=== PATIENT | male | born 1980 | race African-American/Black ===

== ENCOUNTER 2018-07-23 19:58 | Emergency (ER) | payer OTHER ==
[~2018-07-23] VITALS: Ht 180.3 cm; Wt 100.0 kg
[2018-07-23] MEDS ORDERED: KETOROLAC 30 MG/ML VIAL (J1885) IV ONE (21:30)
[2018-07-23] MEDS ORDERED: NS 1,000 ML IV ONE (21:30)
[2018-07-23 21:43] LABS: BASO # 0.1 10^3/uL (0.0-0.2); BASO % 0.9 % (0.0-1.0); EOS # 0.3 10^3/uL (0.0-0.50); EOS % 5.1 % (0.0-3.0); HEMATOCRIT 44.9 % (42.0-52.0); HEMOGLOBIN 15.6 g/dl (13.5-17.5); LYMPH # 1.7 10^3/uL (1.5-4.5); LYMPH % 29.4 % (24.0-44.0); MEAN CORPUSCULAR HEMOGLOBIN 32.8 pg (27.0-33.0); MEAN CORPUSCULAR HGB CONC 34.7 g/dl (32.0-36.5); MEAN CORPUSCULAR VOLUME 94.3 fl (80.0-96.0); MONO # 1.1 10^3/uL (0.0-0.8); MONO % 18.6 % (0.0-5.0); NEUTROPHILS # 2.6 10^3/uL (1.8-7.7); NEUTROPHILS % 45.8 % (36.0-66.0); PLATELET COUNT, AUTOMATED 222 10^3/uL (150-450); RED BLOOD COUNT 4.76 10^6/uL (4.30-6.10); WHITE BLOOD COUNT 5.6 10^3/uL (4.0-10.0)
[2018-07-23 22:07] LABS: BLOOD UREA NITROGEN 12 MG/DL (7-18); C REACTIVE PROTEIN QUANTITATIV 3.51 MG/DL (0.00-0.30); CALCIUM LEVEL 8.9 MG/DL (8.5-10.1); CARBON DIOXIDE LEVEL 27 MEQ/L (21-32); CHLORIDE LEVEL 105 MEQ/L (98-107); CREATININE FOR GFR 1.13 MG/DL (0.70-1.30); GLOMERULAR FILTRATION RATE > 60.0 (>60); GLUCOSE, FASTING 87 MG/DL (70-100); POTASSIUM SERUM 4.2 MEQ/L (3.5-5.1); SODIUM LEVEL 139 MEQ/L (136-145)
[2018-07-23] MEDS ORDERED: ISOVUE-370 76% 100ML VIAL (Q9967) As Ordered ONE (22:12)
--- NOTE | 2018-07-23 22:39 | REPVR ---
EXAM: CT Neck With Contrast EXAM DATE/TIME: 07/23/2018 10:19 PM CLINICAL HISTORY: 37 years old, male; Signs and symptoms; Mass, lump, or swelling in neck; Additional info: Neck mass, swelling TECHNIQUE: Axial computed tomography images of the neck with intravenous contrast. All CT scans at this facility use at least one of these dose optimization techniques: automated exposure control; mA and/or kV adjustment per patient size (includes targeted exams where dose is matched to clinical indication); or iterative reconstruction. Coronal and sagittal reformatted images were created and reviewed. CONTRAST: 75 ml of ISOVUE 370 administered intravenously. COMPARISON: No relevant prior studies available. FINDINGS: Sinuses: Minimal bilateral maxillary sinus mucosal thickening, right greater than left Oropharynx: Normal. No significant tonsillar enlargement. Larynx: The epiglottis is normal. Submandibular/Parotid glands: Rounded mass in the lower pole of the right parotid measuring 2.0 x 2.1 x 2.1 cm. The margins are slightly lobular. There is an adjacent slightly enlarged node measuring 10 mm anterior to the lower pole of the nodule. There is a marker over the posterior aspect of the right sternocleidomastoid muscle which is approximately 3.5 cm caudal to the right parotid nodule. Thyroid: Normal. No enlarged or calcified nodules. Lymph nodes: Anterior submandibular node which is mildly enlarged centered to the left of midline measuring 2.0 x 1.2 x 1.0 cm. Lung apices: Normal as visualized. Vasculature: No acute findings. Auditory system: Debris in the external auditory canals. Bones/joints: Degenerative disc changes in the mid and lower cervical spine. Soft tissues: Normal. No significant soft tissue swelling. IMPRESSION: 1. Right parotid mass in the lower pole with slightly lobular margins and an adjacent 1 mm lymph node. This is located approximately 3.5 cm cephalad to a marker in the right neck. 2. Marker in the right neck which overlies the posterior aspect of the right sternocleidomastoid muscle with no definite underlying mass or adenopathy at this location. 3. Minimal bilateral maxillary sinus disease, right greater than left. 4. Anterior submandibular nodule or node centered to the left of midline measuring 2.0 x 1.2 x 1.0 cm[address] Otherwise negative CT neck. Electronically signed by: Williams Ahuja On 07/23/2018 22:38:56 PM
[2018-07-23] MEDS ORDERED: PRED20TA PO (23:12)
[2018-07-23] MEDS ORDERED: predniSONE 20 MG TAB PO ONE (23:15)
[2018-07-23] MEDS ORDERED: methylPREDNISolone INJ 125 MG/2 ML VIAL (J2930) IV ONE (23:15)
[2018-07-23 23:20] LABS: ERYTHROCYTE SEDIMENTATION RATE 1 mm/hr (0-15)
[2018-07-23 23:21] VITALS: BP 158/90
--- NOTE | 2018-07-28 08:47 | ED PDOC ---
Post-Departure Follow-Up radiology report faxed to Sudha Rodriguez MD Jul 28, 2018 08:47
== END 2018-07-23 23:26 | disposition home or self-care (01) ==
LOC: M ED 19:58
DX: K11.8 Other diseases of salivary glands (principal); I25.10 Atherosclerotic heart disease of native coronary artery without angina pectoris
CPT/HCPCS: 70491; 80048; 85025; 85652; 86140; 96374; 96375; 99284; J1885; J2930; Q9967

== ENCOUNTER 2018-08-27 15:02 | Emergency (ER) | payer OTHER ==
[~2018-08-27] VITALS: Ht 180.3 cm; Wt 93.2 kg
[~2018-08-27 15:02] MED LIST: PRED20TA PO
[2018-08-27 18:11] VITALS: BP 133/80
== END 2018-08-27 18:16 | disposition home or self-care (01) ==
LOC: M ED 15:02
DX: K11.8 Other diseases of salivary glands (principal); Z72.0 Tobacco use

== ENCOUNTER → 2019-01-21 | Outpatient (CLI) | payer MEDICAID | LOC: M OUTALCOH 08:32 | PROVIDERS: ATTEND Psychiatry & Neurology Psychiatry | DX: F10.20 Alcohol dependence, uncomplicated (principal) ==

== ENCOUNTER 2019-02-04 08:00 | Outpatient (RCR) | payer MEDICAID | END 2019-02-27 | LOC: M OUTALCOH 08:00 | PROVIDERS: ATTEND Psychiatry & Neurology Psychiatry | DX: F10.20 Alcohol dependence, uncomplicated (principal) ==